=== PATIENT | male | born 1980 | race Caucasian/White ===

== ENCOUNTER 2018-05-26 16:07 | Emergency (ER) | payer OTHER ==
--- NOTE | 2018-05-26 16:17 | EDPHY ---
H & P Time Seen by Provider: 05/26/18 16:14 HPI/ROS: CHIEF COMPLAINT: Head injury HISTORY OF PRESENT ILLNESS: Patient was at the football game, has been drinking , fell walking on the stairs and hit the top of his head on the bleachers. Brought in by EMS, no loss of consciousness, no headache or vomiting, no visual symptoms. No neck or back pain and no weakness or numbness in extremities. REVIEW OF SYSTEMS: Eye: no change in vision ENT: no sore throat Cardiac: no chest pain or syncope Pulmonary: no cough or SOB Abdomen: no vomiting, diarrhea, abdominal pain Musculoskeletal: no back pain or neck pain Skin: Scalp laceration Neuro: no headache Constitutional: no fever : no urinary symptoms A comprehensive 10 point review of systems is otherwise negative aside from elements mentioned in the history of present illness. PAST MEDICAL HISTORY: Negative, has never had a tetanus vaccine and refuses one now. Social history: Recent alcohol General Appearance: Alert and conversant, cooperative. Eyes: No scleral icterus. Pupils equal reactive extraocular motion intact, no nystagmus. ENT, Mouth: Normal mucous membranes. No tongue laceration or abrasion, no hemotympanum. Respiratory: Normal respiratory effort, breath sounds equal, lungs are clear to auscultation. Cardiovascular: Regular rate and rhythm. Gastrointestinal: Abdomen is soft and non tender. Neurological: Alert, face symmetric, normal motor and sensory in extremities. Answers questions appropriately, follows commands, but speech is slurred and he does repeat himself. Skin: 2.5 cm vertex of the scalp laceration which is linear. Musculoskeletal: No extremity bony tenderness. No cervical thoracic or lumbar spine tenderness. Psychiatric: Not agitated. Emergency Department course/MDM: No spinal tenderness, did not lose consciousness. Patient is repeating questions and slurred speech. He has asked me multiple times "what country are you from," and "how did you feel after stapling my head." No headache or vomiting, plan to close laceration, head injury precautions. Patient is placed on a medical incapacity hold for altered mental status due to alcohol, not able to make decisions about leaving. He wanted to call a friend and leave the department but I feel that the most appropriate clinical course of action is to keep him for observation in the emergency department for his head injury, as he is refusing voluntary observation. Procedure: Laceration repair. Verbal consent was obtained from the patient. The 2.5 cm laceration on the scalp was anesthetized using 0.5% bupivacaine with epinephrine. The wound was irrigated with standard emergency department protocol, draped and explored. There were no deep structures involved. No foreign body found. The wound was repaired with jarad. The wound repair was simple. Excellent hemostasis was obtained. Wound care instructions were discussed and the patient was warned regarding scarring. The procedure was performed by myself. 1735: Re-evaluated, is more sober clinically now. Fluent speech. Ambulatory and not ataxic. No headache or neck pain. 1800: stable for discharge with his friend who came to pick him up. Constitutional: Initial Vital Signs Temperature (C) 36.5 C 05/26/18 16:12 Heart Rate 119 H 05/26/18 16:12 Respiratory Rate 18 05/26/18 16:12 Blood Pressure 137/104 H 05/26/18 16:12 O2 Sat (%) 94 05/26/18 16:12 O2 Delivery Mode Room Air Allergies/Adverse Reactions: No Known Allergies Allergy (Unverified 05/26/18 16:11) Home Medications: Medication Instructions Recorded NK [No Known Home Meds] 05/26/18 MDM/Departure - Depart Disposition: Home, Routine, Self-Care Clinical Impression: Head injury Qualifiers: Encounter type: initial encounter Qualified Code(s): S09.90XA - Unspecified injury of head, initial encounter Scalp laceration Qualifiers: Encounter type: initial encounter Qualified Code(s): S01.01XA - Laceration without foreign body of scalp, initial encounter Condition: Good Instructions: Laceration (ED), Head Injury (ED), Staple Care (ED) Additional Instructions: Wound Care Follow-Up: Removal of sutures in 10 days. Suture removal is complimentary in uncomplicated cases. Infection or abnormal findings would require reevaluation by the MD. In that case, you may be billed. Referrals: Aly Vaughan MD [Medical Doctor] - As per Instructions
[2018-05-26 18:08] VITALS: BP 107/84
== END 2018-05-26 18:11 | disposition home or self-care (01) ==
LOC: EDUNIT#
PROC: 0HQ0XZZ Repair Scalp Skin, External Approach (ICD-10-PCS; principal; 2018-05-26)
DX: S01.01XA Laceration without foreign body of scalp, initial encounter (principal); W10.8XXA Fall (on) (from) other stairs and steps, initial encounter; Y92.39 Other specified sports and athletic area as the place of occurrence of the external cause; F10.920 Alcohol use, unspecified with intoxication, uncomplicated